=== PATIENT | male | born 1990 | race African-American/Black ===

== ENCOUNTER 2023-04-02 15:42 | Emergency (ER) | payer MEDICAID, SELFPAY ==
[2023-04-02 15:44] VITALS: BP 127/84; PULSE 97; RESP 18; TEMP 36.4; O2SAT 97; BMI 26.4
--- NOTE | 2023-04-02 18:04 | EDS_ITS ---
<Statement entered by Echo Stearns MD - 04/02/23 23:14> I have personally performed a face to face assessment of the patient and have reviewed the ELI Note. Patient presents secondary to paresthesias to the upper and lower extremities. He states he has had symptoms intermittently for several months. He states that for started on the palms of his hands and his feet. It then spread up into his forearms and lower legs. He denies history of diabetes. No history of nerve injury. He is not taking any medications. Patient sitting upright in bed no acute distress. Head neck examination unremarkable. Heart is regular rate and rhythm. Lung sounds are clear. Abdomen is soft and nontender. Extremity examination reveals normal skin color. He has strong distal pulses throughout. He has normal sensation on testing. As an example, patient states that when he makes a tight fist and then opens his hand, the areas that are pink in color tended tingle for a few seconds. Labwork was obtained at this time and is unremarkable. His potassium and renal function is normal. I did advise him to follow-up with his primary care physician as he may need further nerve conduction testing, but no other emergency testing is needed at this time. HPI History of Present Illness Chief Complaint: Numb/Ting Narrative Narrative: Patient presenting today with [id number] sensation and an itchy sensation that he intermittently has in his fingers, toes, forearms, and lower legs over the past 6+ months. He has never been seen for this issue. He reports that he decided to come in today because he feels that this is gone on for too long. He denies a PMH of any chronic health conditions. He denies any fever, chills, chest pain, and shortness of breath. PFSH PFS Medical History no medical history Allergy/AdvReac Type Severity Reaction Status Date / Time Penicillins Allergy Mild Anaphylaxis Verified 04/02/23 15:48 Social History Smoking Status: Unknown if ever smoked ROS ROS ED Constitutional Constitutional ED: Denies chills or fever(s) Cardiovascular Cardiovascular: Denies chest pain Respiratory/Chest Respiratory/Chest: Denies cough or dyspnea Gastrointestinal Gastrointestinal: Denies abdominal pain, nausea or vomiting Musculoskeletal Musculoskeletal: Denies arthralgias or myalgias Integumentary Denies rash Neurologic Neurologic: Reports paresthesias; Denies weakness EXAM Physical Exam Const Vital Signs: 04/02/23 15:44 04/02/23 19:59 Temperature 97.5 F L Temperature Source Temporal Pulse Rate 97 74 Respiratory Rate 18 16 Blood Pressure 127/84 H Blood Pressure Mean 98 Pulse Ox 97 98 Oxygen Delivery Method Room Air Positive well nourished, well developed and no apparent distress General Appearance ED: well developed HEENT Reports normocephalic and head/scalp atraumatic Mouth ED: Yes moist mucous membranes normal Eyes PERRL and EOMs intact bilaterally Neck full ROM and supple Chest Wall inspection of chest normal Resp normal respiratory effort and clear to auscultation bilaterally Cardio regular rate and regular rhythm GI soft to palpation, non-tender, non-distended and no masses Back/Spine normal ROM and normal to inspection Extremity normal to inspection and full ROM Neuro oriented x3, CN's II-XII intact bilaterally, moves all extremities, no focal motor deficits and no sensory deficits noted Sensorium / Orientation: awake and alert Motor Exam: strength 5/5 throughout Psych mental status grossly normal and thought process normal Skin no rashes or lesions noted and no wounds MDM MDM MDM Narrative Medical decision making narrative: Patient presenting due to paresthesias in his bilateral upper and lower ex tremities that he has had intermittently over the past 6+ months. He also has a itchy sensation intermittently. He is well-appearing and in no acute distress, vitals are unremarkable, NIH is 0. Labs to be obtained to rule out leukocytosis, electrolyte abnormality. Labs overall are unremarkable. Sodium very slightly decreased at 135. At this time, the cause of his paresthesias is unknown. Patient is to follow-up with his PCP for further work-up. He will be discharged home in stable condition and is comfortable with plan Lab Data Attestation: I reviewed the patient's lab results. Lab results narrative: Sodium 135, H&H 17.4 and 49.9 Labs: Laboratory Results - last 24 hr 04/02/23 18:10 WBC 8.8 RBC 5.42 Hgb 17.4 H Hct 49.9 MCV 92.1 MCH 32.1 H MCHC 34.9 RDW Std Deviation 41.3 RDW Coeff of Myles 12.2 Plt Count 317 MPV 10.0 Immature Gran % (Auto) 0.200 Neut % (Auto) 64.1 Lymph % (Auto) 27.8 [place] % (Auto) 5.8 Eos % (Auto) 1.6 Baso % (Auto) 0.5 Absolute Neuts (auto) 5.7 Absolute Lymphs (auto) 2.45 Nucleated RBC % 0 Sodium 135 L Potassium 3.8 Chloride 103 Carbon Dioxide 25.0 Anion Gap 7 BUN 9 Creatinine 0.98 Estim Creat Clear Calc 123.43 Est GFR (MDRD) Af Amer 115 Est GFR (MDRD) Non-Af 95 BUN/Creatinine Ratio 9.2 L Glucose 92 Calcium 9.7 Discharge Plan Triage Chief Complaint: Numb/Ting ED Midlevel Provider: Yoli Ugalde ED Provider: Echo Stearns Dx/Rx/DC Orders Clinical Impression: Paresthesias Instructions: ED Paraesthesias Primary Care Provider: Care Physician,No Primary Referrals: Care Physician,No Primary [Primary Care Provider] - Activity Restrictions/Additional Instructions: Please follow-up with your PCP in 3 to 5 days. Return for worsening of your symptoms. Disposition Disposition: Home, Self Care Discharge Date/Time: 04/02/23 20:21
[2023-04-02 18:28] LABS: Absolute Lymphocyte Count 2.45 X10^3/uL (0.83-4.51); Absolute Neutrophil Count 5.7 X10^3/uL (2.0-7.7); Basophil# 0.04 X10^3/uL; Basophil% 0.5 % (0-1); Eosinophil# 0.14 X10^3/uL; Eosinophils% 1.6 % (0-5); Hematocrit 49.9 % (40-54); Hemoglobin 17.4 g/dL (13.0-16.5); Lymphocyte # 2.45 X10^3/ul (0.83-4.51); Lymphocyte % 27.8 % (19-41); Mean Corp Hgb Conc 34.9 g/dL (32-36); Mean Corpuscular Hgb 32.1 pg (27.0-32.0); Mean Corpuscular Volume 92.1 fL (80-94); Monocyte# 0.51 X10^3/uL; Monocyte% 5.8 % (0-10); NRBC Flagged by Analyzer 0 % (0-5); Neutrophil # 5.65 X10^3/uL (2.7-7.7); Neutrophil % 64.1 % (47-70); Platelet Count 317 K/mm3 (150-450); RBC Distribution Width CV 12.2 % (11.6-14.6); RBC Distribution Width SD 41.3 fl (35.1-43.9); Red Blood Count 5.42 M/mm3 (4.6-6.2); White Blood Count 8.8 K/mm3 (4.4-11.0)
[2023-04-02 18:41] LABS: Anion Gap 7 (5-15); BUN 9 mg/dL (7-18); BUN/Creat Ratio 9.2 RATIO (10-20); Calcium,Total 9.7 mg/dL (8.5-10.1); Chloride 103 mmol/L (98-107); Creatinine, Serum 0.98 mg/dL (0.70-1.30); EST Glomerular Filtration Rate 95 mL/min (>60); Est Glom Filt Rate - Afr Amer 115 mL/min (>60); Estimated Creatinine Clearance 123.43 ml/min; Glucose 92 mg/dL (74-106); Potassium 3.8 mmol/L (3.5-5.1); Sodium Level 135 mmol/L (136-145)
[2023-04-02 19:59] VITALS: PULSE 74; RESP 16; O2SAT 98
== END 2023-04-02 20:21 | disposition home or self-care (01) ==
PROVIDERS: Physician Assistant; Emergency Provider Emergency Medicine; Visit Provider Emergency Medicine
DX: R20.2 Paresthesia of skin (principal)
CPT/HCPCS: 80048; 85025; 99283; A4216